=== PATIENT | female | born 1955 | race Caucasian/White ===

== ENCOUNTER → 2018-12-27 12:26 | Outpatient (CLI) | payer OTHER, SELFPAY | PROVIDERS: Visit Provider Physician Assistant | DX: N39.0 Urinary tract infection, site not specified (principal) | CPT/HCPCS: 87086 ==

== ENCOUNTER → 2019-11-18 17:15 | Outpatient (CLI) | payer MEDICARE, OTHER, SELFPAY | PROVIDERS: Visit Provider Physician Assistant | DX: R30.0 Dysuria (principal) | CPT/HCPCS: 87086 ==

== ENCOUNTER 2019-11-20 14:24 | Emergency (ER) | payer MEDICARE, OTHER, SELFPAY ==
[2019-11-20 15:09] VITALS: BP 176/97; PULSE 78; RESP 17; TEMP 36.3; O2SAT 96; BMI 32.1
--- NOTE | 2019-11-20 15:12 | DI.RAD.S_ITS ---
PROCEDURE: XR SHOULDER LT MIN 2V INDICATIONS: Shoulder pain TECHNIQUE: 3 views of the shoulder were acquired. COMPARISON: None. FINDINGS: Bones: No fractures or dislocations. No suspicious bony lesions. Glenohumeral joint degenerative arthritis. Visualized ribs appear intact. Soft tissues: No suspicious soft tissue calcifications. IMPRESSION: Glenohumeral joint degenerative arthritis. No evidence acute bony abnormality of the right shoulder Dictated by: Rahul Wells M.D. on 11/20/2019 at 16:36 Approved by: Rahul Wells M.D. on 11/20/2019 at 16:36
--- NOTE | 2019-11-20 18:37 | ED_ITS ---
HPI - Extremity Injury (Upper) <ROCIO Alvarado - Last Filed: 11/20/19 21:13> General Chief Complaint: Extremity Injury, Upper Stated Complaint: left shoulder injury Time Seen by Provider: 11/20/19 18:21 Mode of arrival: Ambulatory History of Present Illness HPI narrative: 63-year-old female presents to the emergency department for left shoulder pain over the past few months. She states she has had this happen in the and seen a chiropractor who gave her exercises to try which helped at that time a few years ago. However, it she developed a dull aching pain that is worse with arm extension and internal rotation. She denies any trauma to the area. She tried the exercises that were given to her previously but this did not help the pain. She states she is worried about a rotator cuff injury. She denies any swelling, bruising, decreased strength, fevers, chills, nausea, vomiting, diarrhea, chest pain, shortness of breath, or other concerns. Related Data Home Medications Medication Instructions Recorded Confirmed allopurinol 100 mg PO DAILY 11/20/19 11/20/19 omeprazole 40 mg PO DAILY 11/20/19 paroxetine HCl 20 mg PO DAILY 11/20/19 11/20/19 Previous Rx's Medication Instructions Recorded sulfamethoxazole 800 1 tab PO BID 5 Days #10 tab 11/18/19 mg-trimethoprim 160 mg tablet Allergies Allergy/AdvReac Type Severity Reaction Status Date / Time ciprofloxacin [CIPROFLOXACIN] Allergy Intermediate Hives Verified 11/18/19 17:08 Review of Systems <ROCIO Alvarado - Last Filed: 11/20/19 21:13> Review of Systems Narrative: REVIEW OF SYSTEMS: GENERAL: Denies fever or chills. HENT: No head trauma. EYES: No double vision or vision loss. CARDIOVASCULAR: No chest pain or syncope. RESPIRATORY: No shortness of breath or cough. GASTROINTESTINAL: No nausea, vomiting, diarrhea, or constipation. GENITOURINARY: No flank pain or dysuria. MUSCULOSKELETAL: Complains of left shoulder pain, see HPI. INTEGUMENTARY: No rash, lesions, or pruritus. NEURO: No numbness, tingling. PSYCH: No behavior or mood changes. Patient History <ROCIO Alvarado - Last Filed: 11/20/19 21:13> Medical History (Updated 11/20/19 @ 18:36 by ROCIO Alvarado) UTI (urinary tract infection) (Acute) Social History Smoking Status: Never smoker Smoking Status: Never smoker Exam <ROCIO Alvarado - Last Filed: 11/20/19 21:13> Initial Vital Signs Initial Vital Signs: Vital Signs Temperature 97.3 F L 11/20/19 15:09 Pulse Rate 78 11/20/19 15:09 Respiratory Rate 17 11/20/19 15:09 Blood Pressure 176/97 H 11/20/19 15:09 Pulse Oximetry 96 11/20/19 15:09 PHYSICAL EXAMINATION: GENERAL: Well groomed, alert, and cooperative. Answers questions promptly and appropriately. Vital signs noted. HENT: Normocephalic, atraumatic. EYES: Symmetrical, sclera white, no periorbital swelling. CARDIOVASCULAR: Regular rate. RESPIRATORY: Normal respiratory rate, trachea midline, airway patent. No stridor, nasal flaring or accessory muscle use. MUSCULOSKELETAL: Tenderness to anterior aspect of left shoulder joint. Decreased internal rotation and extension due to pain. [employer] User Interface [employer] strength, deltoid, and forearm strength equal bilaterally. Normal gait and coordination. Equal tone and mass bilaterally. No spinal tenderness or deformities. EXTREMITIES: CMS intact. No pedal edema. SKIN: Warm, dry, soft, appropriate color for ethnicity. No lesions, rashes, or wounds. NEURO: Alert and Oriented X 3. No sensory deficits. PSYCH: Appropriate affect and mood. <Marcela Shaw DO - Last Filed: 11/20/19 21:20> Initial Vital Signs Initial Vital Signs: Vital Signs Temperature 97.3 F L 11/20/19 15:09 Pulse Rate 78 11/20/19 15:09 Respiratory Rate 17 11/20/19 15:09 Blood Pressure 176/97 H 11/20/19 15:09 Pulse Oximetry 96 11/20/19 15:09 Course <ROCIO Alvarado - Last Filed: 11/20/19 21:13> Orders Ordered: ED Orders 11/20/19 15:12 XR shoulder LT min 2V Stat Vital Signs Vital signs: Vital Signs - 8 hr 11/20/19 15:09 Temperature 97.3 F L Pulse Rate 78 Respiratory Rate 17 Blood Pressure 176/97 H Pulse Oximetry 96 <Marcela Shaw DO - Last Filed: 11/20/19 21:20> Orders Ordered: ED Orders 11/20/19 15:12 XR shoulder LT min 2V Stat Vital Signs Vital signs: Vital Signs - 8 hr 11/20/19 15:09 Temperature 97.3 F L Pulse Rate 78 Respiratory Rate 17 Blood Pressure 176/97 H Pulse Oximetry 96 MDM - Extremity Injury (Upper) <ROCIO Alvarado - Last Filed: 11/20/19 21:13> Medical Records Attestation: I reviewed the patient's medical records. Lab Data Attestation: I reviewed the patient's lab results. Imaging Data Extremity x-ray #1: Radiologist's Impression: [address] [address] XRay Report Signed Patient: Melanie Ornelas CMR#: [id number] : 5Acct:[id number] Age/Sex: 63 / FDate of Service: 11/20/19 Loc: ED Accession Number: [id number] Procedure: XR shoulder LT min 2V Ordering Provider: Marcela Shaw D.O. PROCEDURE: XR SHOULDER LT MIN 2V INDICATIONS: Shoulder pain TECHNIQUE: 3 views of the shoulder were acquired. COMPARISON: None. FINDINGS: Bones: No fractures or dislocations. No suspicious bony lesions. Glenohumeral joint degenerative arthritis. Visualized ribs appear intact. Soft tissues: No suspicious soft tissue calcifications. IMPRESSION: Glenohumeral joint degenerative arthritis. No evidence acute bony abnormality of the right shoulder Dictated by: Rahul Wells M.D. on 11/20/2019 at 16:36 Approved by: Rahul Wells M.D. on 11/20/2019 at 16:36 [facility] Narrative Medical decision making narrative: 63-year-old female presents emergency department for reproducible left shoulder pain for the past few months. X-ray shows arthritis without fracture. Differential for pain include rotator cuff injury, arthritis, strain, and less likely fracture due to lack of evidence on x-ray. Patient was referred to Ortho for further evaluation. Very little concern for cardiac etiology as pain has been ongoing for quite some time, is reproducible on examination, and reproducible with various movements. Patient was encouraged to return to emergency department for any new or worsening symptoms. Patient did plan of care verbalized understanding. Discharge Plan Departure Patient Disposition: Home Clinical Impression: Left anterior shoulder pain Discharge Date/Time: 11/20/19 18:55 Instructions: DI for Rotator Cuff Injury Activity Restrictions/Additional Instructions: Thank you for entrusting me with your care today. As discussed, your x-rays negative for any fractures. Due to your exam, there is some concern for a rotator cuff injury. I referred you to an orthopedic listed below, please give their office a call on Saturday to schedule an appointment. You may take Tylenol and ibuprofen for pain Return emergency department for any new or worsening symptoms such as chest pain, shortness of breath, dizziness, syncope, or other concerns. Prescriptions: No Action sulfamethoxazole-trimethoprim [Bactrim DS] 800-160 mg tablet 1 tab PO BID 5 Days Qty: 10 RF: 0 allopurinol 100 mg tablet 100 mg PO DAILY RF: 0 omeprazole 40 mg capsule,delayed release(DR/EC) 40 mg PO DAILY RF: 0 paroxetine HCl 20 mg tablet 20 mg PO DAILY RF: 0 Referrals: Anca Oliva MD [Physician] - (Continued left shoulder pain)
== END 2019-11-20 18:55 | disposition home or self-care (01) ==
PROVIDERS: Emergency Provider Nurse Practitioner
DX: M25.512 Pain in left shoulder (principal)
CPT/HCPCS: 73030; 99283

== ENCOUNTER → 2020-08-29 10:14 | Outpatient (CLI) | payer MEDICARE, OTHER, SELFPAY ==
[2020-08-29 14:16] LABS: COVID19 -Nasal RAPID POSITIVE (Negative)
== END ==
PROVIDERS: Visit Provider Physician Assistant
DX: Z11.59 Encounter for screening for other viral diseases (principal)
CPT/HCPCS: 87635